=== PATIENT | female | born 1955 | race Caucasian/White ===

== ENCOUNTER 2024-03-14 12:57 | Outpatient (CLI) | payer MEDICARE, SELFPAY ==
--- NOTE | 2024-03-14 11:00 | DI.RAD_ITS ---
Exam(s) XR CHEST 2V PA LATERAL EXAM: XR CHEST 2V PA LATERAL CLINICAL HISTORY: Cough, R05.9, eval pna. TECHNIQUE: 2D digital imaging was performed. COMPARISON: No exams were available for comparison FINDINGS: 2 views: Heart size is normal. The mediastinum is not widened. Lungs are clear. No infiltrates nor pleural effusions. IMPRESSION: No acute pulmonary findings. DATA REPOSITORY: RADIATION DOSE DELIVERED:
--- OUTSIDE RECORDS SUMMARY | 2024-03-14 13:01 | XMS_ITS | Encounter Summary ---
Author Organization [facility] ivision Address [address] [place] [address] Care Team Providers Care [employer] Converter Name Role Phone Simone Ryan DO Primary Care Provider + [phone] Reason for Visit * Reason Comments low stats states sats at home. no complaints now, no new sxs. Encounter Details Date Type Department Care Team (Late st Contact Info) Description 11/03/2020 18:32 EDT - 11/03/2020 22:51 EDT Emergency [facility] [address] [place] [address] Francisca Pryor MD COVID-19 (Primary Dx); Dyspnea, unspecified type Discharge Disposition: Home or Self Social History Tobacco Use Types Packs/Day Years Used Date Smoking Tobacco: Passive Smo ke Exposure - Never Smoker Smokeless Tobacco: Never Alcohol Use Standard Drinks/Week Comments Never 0 (1 standard drink = 0.6 oz pur e alcohol) Comments Unknown Sex and Gender Information Value Date Recorded Sex Assigned at Not on file Legal Sex Female 18:10 EDT Gender Identity Not on file Sexual Orientation Not on file documented as of this encounter Last Filed Vital Signs Vital Sign Reading Time Taken Comments Blood Pressure 119/65 11/03/2020 2251 EDT Pulse 89 11/03/2020 225 EDT Temperature 36.8 ??C (98.2 ??F) 11/03/2020 1835 EDT Respiratory Rate 18 11/03/2020 225 EDT Oxygen Saturation 95% 11/03/2020 225 EDT Inhaled Oxygen Concentration - - Weight 79.4 kg (175 lb) 11/03/2020 183 EDT Height 172.7 cm (5' 8) 11/03/2020 1835 EDT Body Mass Index 26.61 11/03/2020 1835 EDT documented in this encounter Discharge Instructions * Discharge Instructions* Francisca Pryor - 11/03/2020 21:37 EDT Possible COVID-19 Home Care Instructions YOU may have infectious illness. As general precautions we recommend you isolated in your home and avoid interactions with other individuals or large groups as much as possible. You need to remain isolated for MINIMUM of 10 days since onset of symptoms AND MINIMUM of 24 hours after symptoms (fever,cough, etc.) have completely resolved. Return to emergency department or call 911 if you feel your symptoms are worsening. Most patients with COVID-19 will recover without any difficulties, however, in patients that worsenthis primarily occurs on days 6-10 from first onset of symptoms. Please be particularly mindful during this time period. VIDEO COVID-19 - Stable Patient Discharge Instructions [email or web address] These instructions are for patients with suspected COVID-19 who do not require hospitalization based on the Centers for Disease Control's (CDC) Guidelines and who may continue care at home. Coronavirus is a general category of virus that cause respiratory illnesses. The new coronavirus iscalled COVID-19. The virus is spread through: Respiratory droplets when someone sneezes or coughs Iwpzas-qf-miomii infection can happen in close contact with someone who is infected (within 6 feet). The virus may be caught if someone touches a surface or object with infected respiratory droplets on it. People are most contagious (at highest risk of spreading the virus to others) when they have symptoms. Some people may also be contagious before they get symptoms. Symptoms of COVID-19 may happen within 2-14 days following exposure and can be: Fever Cough Shortness of breath Rest, drink plenty of fluids, and monitor your symptoms at home. Notify your healthcare provider ifyour symptoms worsen. Return to your healthcare provider or go to the nearest Emergency Department right away if you havedifficulty breathing, chest pain, or a fever with confusion. Home isolation may be as long as 14 days. Consult with your healthcare provider or local health department once you no longer have symptoms. Steps to Prevent the Spread of Infection to People in Your Home and Community Stay home except to get medical care Wear a facemask when you are in close contact with other people and when going to a medical appointment or the hospital. Notify your healthcare provider before your appointment that you are suspectedof having COVID-19. Separate yourself from other people and animals in your home- as much as possible, you should stay in a specific room and away from other people in your home. Also, you should use a separate bathroom, if available. Cover your coughs and sneezes and then immediately wash your hands WASH YOUR HANDS often with soap and water for at least 20 seconds. If soap and water are not available, clean your hands with an alcohol-based hand hog operator that contains at least 60% alcohol, covering all surfaces of your hands and rubbing them together until they feel dry. Avoid touching your eyes, nose, and mouth with unwashed hands Do not share personal items with others, such as drinking glasses, cups, eating utensils, or towels. After using these items, they should be washed thoroughly with soap and water. Clean hard surfaces daily with antibacterial/anti-germicidal solutions such as Lysol or Clorox. Seethe CDC's Environmental Cleaning and Disinfection Recommendations for additional guidance. documented in this encounter Medications at Time of Discharge CHOLESTEROL ORAL Take by mouth levothyroxine sodium (SYNTHROID ORAL) Take by mouth azithromycin (ZITHROMAX) 250 MG tablet Take 2 tablets on first day, then 1 per day until finished. 6 tablet 11/03/2020 guaiFENesin (MUCINEX) 600 mg 12 hr tablet Take 2 tablets (1,200 mg total) by mouth 2 (two) times daily 30 tablet 11/03/2020 ibuprofen (MOTRIN) 600 MG tablet Take 1 tablet (600 mg total) by mouth Every 6 (six) hours as needed for Pain for up to 10 days 30 tablet 11/03/2020 11/13/2020 documented as of this encounter ED Notes * Francisca Pryor - 11/03/2020 2100 EDT History Chief Complaint Patient presents with ??? low stats states sats at home. no complaints now, no new sxs. HPI Patient is a 65-year-old female with history of hypothyroidism presenting with complaints of low oxygen saturations at home and shortness of breath. She reports that she is currently on day 8 of symptoms of COVID-19. Her positive test was on 10/28 at an outpatient pharmacy. She did receive the monoclonal antibody infusion yesterday, and reports that this did improve her fever. She is currently having worsening shortness of breath. She denies any cough, vomiting, diarrhea. She endorses anorexia, decreased p.o. intake, loss of taste and smell. She was monitoring her oxygen saturations at home with a pulse oximeter, and cell that went down to 89% with exertion, prompting her to seek medical eval uation. She is unvaccinated. Past Medical History: ??? High cholesterol ??? Thyroid disease History reviewed. No pertinent surgical history. No family history on file. Social History Socioeconomic History ??? Marital status: Spouse name: Not on file ??? Number of children: Not on file ??? Years of education: Not on file ??? Highest education level: Not on file Tobacco Use ??? Smoking status: Passive Smoke Exposure - Never Smoker ??? Smokeless tobacco: Never Used Substance and Sexual Activity ??? Alcohol use: Never ??? Drug use: Never Additional Smoking E-Cigarettes/Vaping Use E-Cigarette/Vaping Substances Review of Systems Constitutional: Negative for activity change, chills and fever. HENT: Negative for congestion, rhinorrhea and sore throat. Eyes: Negative for visual disturbance. Respiratory: Positive for shortness of breath. Negative for cough. Cardiovascular: Negative for chest pain and palpitations. Gastrointestinal: Negative for abdominal pain, diarrhea, nausea and vomiting. Genitourinary: Negative for dysuria and flank pain. Musculoskeletal: Negative for back pain and neck pain. Skin: Negative for wound. Neurological: Negative for weakness, numbness and headaches. Physical Exam ED Triage Vitals BP 11/03/20 1835 125/82 Heart Rate 11/03/20 1812 74 Resp 11/03/20 1835 16 Temp 11/03/20 183 36.8 ??C (98.2 ??F) SpO2 11/03/20 1812 94 % O2 Device 11/03/20 183 RA O2 Flow Rate (L/min) -- Physical Exam Vitals and nursing note reviewed. Constitutional: General: She is not in acute distress. HENT: Head: Normocephalic. Nose: No congestion. Eyes: Extraocular Movements: Extraocular movements intact. Pupils: Pupils are equal, round, and reactive to light. Cardiovascular: Rate and Rhythm: Normal rate. Pulses: Normal pulses. Heart sounds: No murmur heard. No friction rub. No gallop. Pulmonary: Effort: Pulmonary effort is normal. No respiratory distress. Breath sounds: No wheezing, rhonchi or rales. Abdominal: General: Abdomen is flat. There is no distension. Tenderness: There is no abdominal tenderness. There is no guarding. Musculoskeletal: General: No swelling. Normal range of motion. Cervical back: Normal range of motion and neck supple. Skin: General: Skin is warm. Capillary Refill: Capillary refill takes less than 2 seconds. Neurological: General: No focal deficit present. Mental Status: She is alert. Cranial Nerves: No cranial nerve deficit. Motor: No weakness. ED Course Procedure(s): Procedures EKG: Results for orders placed or performed during the hospital encounter of 11/03/20 ECG 12 lead Result Value Ref Range Ventricular Rate 63 BPM Atrial Rate 63 BPM TN Interval 144 ms QRS Duration 74 ms QT Interval 406 ms QTC Calculation 415 ms P [place] 38 degrees R [place] -22 degrees T Wave [place] 8 degrees Impression Normal sinus rhythm Moderate voltage criteria for LVH, may be normal variant Borderline ECG INT TIME: 2045 Confirmed by Francisca Pryor ([id number]), market editor SHERRY FAIRCHILD ([id number]) on 11/03/2020 11:05:50 PM EKG Procedure Information Interpreted by: ED Physician Reason for EKG: Shortness of Breath Quick EKG Clinical Impression: Abnormal EKG Compared with Previous EKG?: No Previous EKG Available Rate: normal BPM: 63 Rhythm: sinus rhythm QRS [place]: normal Interval: Normal ST Segments ST Segments: Nonspecific changes Laboratory Data: Results for orders placed or performed during the hospital encounter of 11/03/20 CBC w/auto diff Collection Time: 11/03/20 20:47 Result Value Ref Range WBC 4.2 (L) 4.5 - 11.0 K/uL RBC 4.98 3.80 - 5.20 M/uL Hemoglobin 14.6 11.7 - 16.1 g/dL Hematocrit 44.3 35.0 - 47.0 % MCV 89.0 81.0 - 102.0 fL MCH 29.3 25.0 - 35.0 pg MCHC 33.0 30.0 - 36.0 g/dL RDW 13.3 11.5 - 14.6 % MPV 10.3 No Established Reference Range fL Neutrophils % 58.7 40.0 - 70.0 % Lymphocytes % 32.4 15.0 - 45.0 % Monocytes % 8.0 1.0 - 8.0 % Eosinophils % 0.2 0.0 - 6.0 % BASO % 0.7 0.0 - 2.0 % MONO # 0.3 No Established Reference Range K/uL EOS # 0.0 No Established Reference Range K/uL BASO # 0.0 No Established Reference Range K/uL Platelets 183 150 - 450 K/uL nRBC 0 0 - 0 /100WBC LYMPH # 1.4 No Established Reference Range K/uL ABS NEUT # 2.48 No Established Reference Range K/uL Hepatitis C antibody Collection Time: 11/03/20 20:47 Result Value Ref Range Hepatitis C Antibodies Nonreactive Nonreactive Comprehensive metabolic panel Collection Time: 11/03/20 20:47 Result Value Ref Range Glucose 86.08 74 - 106 mg/dL Sodium 137.34 137 - 145 mMOL/L Potassium 3.7 3.5 - 5.1 mMOL/L Chloride 104.10 98 - 107 mMOL/L CO2 21 21 - 31 mMOL/L Anion Gap 16 10 - 20 BUN 20 (H) 7 - 18 mg/dL Creatinine 0.87 0.52 - 1.25 mg/dL EGFR 64.9 >60.0 mL/min/1.73*2 Calcium 8.8 8.5 - 10.5 mg/dL Protein 7.5 6.0 - 8.4 g/dL Albumin 4.0 3.0 - 5.0 g/dL A/G Ratio 1.1 >=1.1 Globulin 3.5 1.5 - 3.8 g/dL Total Bilirubin 0.4 0.2 - 1.3 mg/dL AST 95 (H) 5 - 49 U/L Alkaline Phosphatase 115.97 38 - 126 U/L ALT 64 (H) 3 - 35 U/L Troponin I Collection Time: 11/03/20 20:47 Result Value Ref Range Troponin I <0.020 <0.034 ng/mL Imaging: Results for orders placed or performed during the hospital encounter of 11/03/20 X-ray chest AP only Narrative [id number] XR CHEST SINGLE FRONTAL VIEW HISTORY: pain COMPARISON: None. FINDINGS: Lungs/Pleura: Faint bibasilar reticular opacities. No pleural effusion. Heart and Mediastinum: Normal. Bones/Soft Tissues: Normal. Impression Findings as above which may reflect atypical/viral pneumonia. Interpreted By: Vickey Trinidad MD 11/03/2020 8:27 PM Electronically signed by: Vickey Trinidad MD 11/03/2020 8:28 PM Most Recent Vitals: BP: 119/65 (11/03/202250) Heart Rate: 89 (11/03/202250) Resp: 18 (11/03/202250) Temp: 36.8 ??C (98.2 ??F) (11/03/201834) SpO2: 95 % (11/03/202250) O2 Device: Room air (11/03/202250) Medical Decision Making Patient is a 65-year-old female with recently diagnosed COVID-19 presenting with reports of low oxygen saturations at home, shortness of breath, and anorexia. Patient is well-appearing on arrival, noincreased work of breathing, saturating 94% on room air. She has received monoclonal antibody infusion yesterday. Workup significant for chest radiograph consistent with COVID-19 pneumonia. I do not t hink that her symptoms are concerning for acute pulmonary embolism, myocardial ischemia. She is stable for continued outpatient treatment at this time. We discussed return precautions. The patient was evaluated in the emergency department today for the symptoms described in the history of present illness. They were evaluated in the context of the global COVID-19 pandemic, which necessitated consideration that the patient might be at risk for infection with the SARS-CoV-2 virus that causes COVID-19. Institutional protocols and algorithm that pertain to the evaluation of patient is at risk for COVID-19 are in a state of rapid change based on information release by regulatory including the CDC and Federal and State organizations. These policies and algorithms were followed during the patient's care in the ED. ED CONSULT None ED REEVALUATION None Clinical Impression: Diagnoses Diagnosis Comment Added By Time Added COVID-19 Francisca Pryor MD 11/03/2020 21:36 Dyspnea, unspecified type Francisca Pryor MD 11/03/2020 21:36 Disposition: Discharge Good Francisca Pryor MD 11/04/20 0351 documented in this encounter Plan of Treatment Not on file documented as of this encounter Procedures Procedure Name Priority Date/Time Associated Diagnosis Comments HEPATITIS C ANTIBODY STAT 11/03/2020 20:47 EDT TROPONIN I STAT 11/03/2020 20:47 EDT CBC WITH AUTO DIFFERENTIAL STAT 11/03/2020 20:47 EDT COMPREHENSIVE METABOLIC PANEL STAT 11/03/2020 20:47 EDT ECG 12-LEAD STAT 11/03/2020 20:44 EDT XR CHEST AP ONLY STAT 11/03/2020 20:1 1 EDT documented in this encounter Results * Troponin I (11/03/2020 20:47 EDT) Troponin I <0.020 <0.034 ng/mL LAB CHEMISTRY METHOD 11/03/2020 21:24 EDT [facility] Blood BLOOD SPECIMEN / Unknown Venipuncture / Unknown 11/03/2020 20:47 EDT 11/03/2020 20:53 EDT Narrative [facility] - 11/03/2020 21:24 EDT The decision to rule out AMI should not be based on data from a single blood collection. This assay was done using the [employer] Troponin I Method. This method is specific to myocardium and does not cross react with the skeletal muscle Troponin I Isotypes. Results from other methods should not be used interchangeably. us Francisca Pryor MD LAB BLOOD ORDERABLES Final Res ult [facility] [address] * (ABNORMAL) Comprehensive metabolic panel (11/03/2020 20:47 [facility]) Glucose 86.08 74 - 106 mg/dL LAB CHEMISTRY METHOD 11/03/2020 21:11 [facility] Sodium 137.34 137 - 145 mMOL/L LAB CHEMISTRY METHOD 11/03/2020 21:11 [facility] Potassium 3.7 3.5 - 5.1 mMOL/L LAB CHEMISTRY METHOD 11/03/2020 21:11 [facility] Chloride 104.10 98 - 107 mMOL/L LAB CHEMISTRY METHOD 11/03/2020 21:11 [facility] CO2 21 21 - 31 mMOL/L LAB CHEMISTRY METHOD 11/03/2020 21:11 [facility] Anion Gap 16 10 - 20 LAB CHEMISTRY METHOD 11/03/2020 21:11 [facility] BUN 20(H) 7 - 18 mg/dL LAB CHEMISTRY METHOD 11/03/2020 21:11 [facility] Creatinine 0.87 0.52 - 1.25 mg/dL LAB CHEMISTRY METHOD 11/03/2020 21:11 [facility] EGFR 64.9 >60.0 mL/min/1. 73*2 LAB CHEMISTRY METHOD 11/03/2020 21:11 [facility] Calcium 8.8 8.5 - 10.5 mg/dL LAB CHEMISTRY METHOD 11/03/2020 21:11 [facility] Protein 7.5 6.0 - 8.4 g/dL LAB CHEMISTRY METHOD 11/03/2020 21:11 [facility] Albumin 4.0 3.0 - 5.0 g/dL LAB CHEMISTRY METHOD 11/03/2020 21:11 [facility] A/G Ratio 1.1 >=1.1 LAB CHEMISTRY METHOD 11/03/2020 21:11 [facility] Globulin 3.5 1.5 - 3.8 g/dL LAB CHEMISTRY METHOD 11/03/2020 21:11 [facility] Total Bilirubin 0.4 0.2 - 1.3 mg/dL LAB CHEMISTRY METHOD 11/03/2020 21:11 [facility] AST 95(H) 5 - 49 U/L LAB CHEMISTRY METHOD 11/03/2020 21:11 [facility] Alkaline Phosphatase 115.97 38 - 126 U/L LAB CHEMISTRY METHOD 11/03/2020 21:11 T [facility] ALT 64(H) 3 - 35 U/L LAB CHEMISTRY METHOD 11/03/2020 21:11 EDT [facility] Blood BLOOD SPECIMEN / Unknown Venipuncture / Unknown 11/03/2020 20:47 EDT 11/03/2020 20:53 EDT Francisca Pryor MD LAB BLOOD ORDERABLES Final Res ult Performing Organization Address [facility] de Phone Number [facility] [address] * Hepatitis C antibody (11/03/2020 20:47 EDT) Pathologist [facility] Hepatitis C Antibodies Nonreactive Nonreactive LAB CHEMISTRY METHOD 11/03/2020 22:04 T [facility] Blood BLOOD SPECIMEN / Unknown Venipuncture / Unknown 11/03/2020 20:47 EDT 11/03/2020 20:54 EDT Narrative [facility] - 11/03/2020 22:04 EDT Hepatitis C Ab Text - A reactive Hepatitis C Antibody screen indicates acute or chronic hepatitis or prior exposure to Hepatitis-C virus (does not imply immunity or infectious state). Reactive and equivocal results will be referred to the reference laboratory for RIBA or Hepatitis C RNA testing. The Hepatitis-C Antibody screen was done using the [facility]. Francisca Pryor MD LAB BLOOD ORDERABLES Final Res ult Performing Organization Address [facility] de Phone Number [address] * (ABNORMAL) CBC w/auto diff (11/03/2020 20:47 EDT) WBC 4.2(L) 4.5 - 11.0 K/uL LAB HEMATOLOGY METHOD 11/03/2020 21:05 [facility] RBC 4.98 3.80 - 5.20 M/uL LAB HEMATOLOGY METHOD 11/03/2020 21:05 [facility] Hemoglobin 14.6 11.7 - 16.1 g/dL LAB HEMATOLOGY METHOD 11/03/2020 21:05 [facility] Hematocrit 44.3 35.0 - 47.0 % LAB HEMATOLOGY METHOD 11/03/2020 21:05 [facility] MCV 89.0 81.0 - 102.0 fL LAB HEMATOLOGY METHOD 11/03/2020 21:05 [facility] MCH 29.3 25.0 - 35.0 pg LAB HEMATOLOGY METHOD 11/03/2020 21:05 [facility] MCHC 33.0 30.0 - 36.0 g/dL LAB HEMATOLOGY METHOD 11/03/2020 21:05 [facility] RDW 13.3 11.5 - 14.6 % LAB HEMATOLOGY METHOD 11/03/2020 21:05 [facility] MPV 10.3 No Established Reference Range fL LAB HEMATOLOGY METHOD 11/03/2020 21:05 [facility] Neutrophils % 58.7 40.0 - 70.0 % LAB HEMATOLOGY METHOD 11/03/2020 21:05 [facility] Lymphocytes % 32.4 15.0 - 45.0 % LAB HEMATOLOGY METHOD 11/03/2020 21:05 [facility] Monocytes % 8.0 1.0 - 8.0 % LAB HEMATOLOGY METHOD 11/03/2020 21:05 [facility] Eosinophils % 0.2 0.0 - 6.0 % LAB HEMATOLOGY METHOD 11/03/2020 21:05 [facility] BASO % 0.7 0.0 - 2.0 % LAB HEMATOLOGY METHOD 11/03/2020 21:05 [facility] MONO # 0.3 No Established Reference Range K/uL LAB HEMATOLOGY METHOD 11/03/2020 21:05 [facility] EOS # 0.0 No Established Reference Range K/uL LAB HEMATOLOGY METHOD 11/03/2020 21:05 [facility] BASO # 0.0 No Established Reference Range K/uL LAB HEMATOLOGY METHOD 11/03/2020 21:05 [facility] Platelets 183 150 - 450 K/uL LAB HEMATOLOGY METHOD 11/03/2020 21:05 [facility] nRBC 0 0 - 0 /100WBC LAB HEMATOLOGY METHOD 11/03/2020 21:05 [facility] LYMPH # 1.4 No Established Reference Range K/uL LAB HEMATOLOGY METHOD 11/03/2020 21:05 EDT [facility] ABS NEUT # 2.48 No Established Reference Range K/uL LAB HEMATOLOGY METHOD 11/03/2020 21:05 EDT [facility] Blood BLOOD SPECIMEN / Unknown Venipuncture / Unknown 11/03/2020 20:47 EDT 11/03/2020 20:53 EDT us Francisca Pryor MD LAB BLOOD ORDERABLES Final Res ult Performing Organization Address [facility]/ZIP Co de Phone Number [facility] [address] * ECG 12 lead (11/03/2020 20:44 EDT) Ventricular Rate 63 BPM MUSE Atrial Rate 63 BPM MUSE TN Interval 144 ms MUSE QRS Duration 74 ms MUSE QT Interval 406 ms MUSE QTC Calculation 415 ms MUSE P [place] 38 degrees MUSE R [place] -22 degrees MUSE T Wave [place] 8 degrees MUSE 11/03/2020 20:4 4 EDT 11/03/2020 23:05 EDT Impressions MUSE - 11/03/2020 23:05 EDT Normal sinus rhythm Moderate voltage criteria for LVH, may be normal variant Borderline ECG INT TIME: 2045 Confirmed by Francisca Pryor ([id number]), market editor SHERRY FAIRCHILD ([id number]) on 11/03/2020 11:05:50 PM Narrative Procedure Note Francisca Pryor MD - 11/03/2020 IMPRESSION: Normal sinus rhythm Moderate voltage criteria for LVH, may be normal variant Borderline ECG INT TIME: 2045 Confirmed by Francisca Pryor ([id number]), market editor SHERRY FAIRCHILD ([id number]) on11/03/2020 11:05:50 PM us Francisca Pryor MD ECG ORDERABLES Final Result Performing Organization Address [facility]/ZIP Co de Phone Number MUSE * X-ray chest AP only (11/03/2020 20:11 EDT) Anatomical Region Laterality Modality Chest Digital Radiogra phy 11/03/2020 20:2 7 EDT Impressions 11/03/2020 20:28 EDT Findings as above which may reflect atypical/viral pneumonia. Interpreted By: Vickey Trinidad MD ?? 11/03/2020 8:27 PM ? Electronically signed by: Vickey Trinidad MD ??11/03/2020 8:28 PM Narrative 11/03/2020 20:28 EDT [id number] XR CHEST SINGLE FRONTAL VIEW HISTORY: pain COMPARISON: None. FINDINGS: Lungs/Pleura: Faint bibasilar reticular opacities. No pleural effusion. Heart and Mediastinum: Normal. Bones/Soft Tissues: Normal. Procedure Note Vickey Trinidad MD - 11/03/2020 [id number] XR CHEST SINGLE FRONTAL VIEW HISTORY: pain COMPARISON: None. FINDINGS: Lungs/Pleura: Faint bibasilar reticular opacities. No pleural effusion. Heart and Mediastinum: Normal. Bones/Soft Tissues: Normal. IMPRESSION: Findings as above which may reflect atypical/viral pneumonia. Interpreted By: Vickey Trinidad MD 11/03/2020 8:27 PMElectronically signed by: Vickey Trinidad MD 18:28 PM us Jamaal Haji MD IMG DIAGNOSTIC IMAGING ORDERA BLES Final Result documented in this encounter Visit Diagnoses Diagnosis COVID-19- Primary Dyspnea, unspecified type documented in this encounter Care Teams [employer] Con[employer] Relationship Specialty [place] [id number] [place] [address] PCP - General Osteopathic Medicine 11/03/20 documented as of this encounter
--- OUTSIDE RECORDS SUMMARY | 2024-03-14 13:01 | XMS_ITS | Clinical Summary ---
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 6 tablet 11/03/2020 Active Social History Tobacco Use Types Packs/Day Years [...] on file Sexual Orientation Not on file Last Filed Vital Signs Vital Sign Reading Time Taken Comments Blood Pressure 119/65 11/03/2020 2251 EDT Pulse 89 11/03/20202250 EDT Temperature 36.8 ??C (98.2 ??F) 11/03/2020 1835 EDT Respiratory Rate 18 11/03/20202250 EDT Oxygen Saturation 95% 11/03/20202250 EDT Inhaled Oxygen Concentration - - Weight 79.4 kg (175 lb) 11/03/2020 183 EDT Height 172.7 cm (5' 8) 11/03/2020 1835 EDT Body Mass Index 26.61 11/03/2020 1835 EDT Plan of Treatment Health Maintenance Due Date Last Done Comments Breast Cancer Screening 1953 CT Colonography 1953 Colonoscopy 1953 Colorectal Cancer Screening 1955 FIT-DNA (Cologuard) 1953 FIT 1955 FOBT 1955 Medicare Initial Physical (IPPE)/Annual Wellness Visit (AWV) 1953 Osteoporosis Screening 1955 Sigmoidoscopy 1953 DTaP/Tdap/Td Vaccines (1 - Tdap) 1972 Pneumococcal Vaccine: 50+ Ye ars (1 of 1 - PCV) 2003 Zoster Vaccine (1 of 2) 2003 Screening for Diabetes 11/03/2021 11/03/2020 COVID-19 Vaccine ( - 2023-2 5 season) 2023 Influenza Vaccine (#1) 2023 RSV Vaccine: 60+ Years or Pr egnant (1 - 1-dose 75+ series) 2028 Hepatitis C Screening Completed 11/03/2020 HIB Vaccines Aged Out No longer eligi ble based on patient's age to complete this topic HPV Vaccines Aged Out No longer eligi ble based on patient's age to complete this topic Hepatitis A Vaccines Aged Out No long er eligible based on patient's age to complete this topic Hepatitis B Vaccines Aged Out No long er eligible based on patient's age to complete this topic IPV Vaccines Aged Out No longer eligi ble based on patient's age to complete this topic Meningococcal Vaccine Aged Out No flaquito tonya eligible based on patient's age to complete this topic RSV Vaccine: < 20 Months Aged Out No longer eligible based on patient's age to complete this topic Rotavirus Vaccines Aged Out No longer eligible based on patient's age to complete this topic Procedures Procedure Name Priority Date/Time Associated Diagnosis Comments COMPREHENSIVE METABOLIC PANEL STAT 11/03/2020 20:47 EDT HEPATITIS C ANTIBODY STAT 11/03/2020 20:47 EDT from Last 3 Months or Most Recently Relevant to Health Maintenance Results * Hepatitis C antibody (11/03/2020 20:47 EDT) [facility] Hepatitis C Antibodies Nonreactive Nonreactive LAB CHEMISTRY METHOD 11/03/2020 22:04 [facility] Blood BLOOD SPECIMEN / Unknown Venipuncture / Unknown 11/03/2020 20:47 EDT 11/03/2020 20:54 [facility] LABORATORY - 11/03/2020 22:04 EDT Hepatitis C Ab Text - A reactive Hepatitis C Antibody screen indicates acute or chronic hepatitis or prior exposure to Hepatitis-C virus (does not imply immunity or infectious state). Reactive and equivocal results will be referred to the reference laboratory for RIBA or Hepatitis C RNA testing. The Hepatitis-C Antibody screen was done using the [employer] Clinical Diagnostic System. us Francisca Pryor MD LAB BLOOD ORDERABLES Final Res ult [facility] [address] [place] [address], [facility] * (ABNORMAL) Comprehensive metabolic panel (11/03/2020 20:47 EDT) [facility] Glucose 86.08 74 - 106 mg/dL LAB CHEMISTRY METHOD 11/03/2020 21:11 [facility] Sodium 137.34 137 - 145 mMOL/L LAB CHEMISTRY METHOD 11/03/2020 21:11 [facility] Potassium 3.7 3.5 - 5.1 mMOL/L LAB CHEMISTRY METHOD 11/03/2020 21:11 [facility] Chloride 104.10 98 - 107 mMOL/L LAB CHEMISTRY METHOD 11/03/2020 21:11 [facility] CO2 21 21 - 31 mMOL/L LAB CHEMISTRY METHOD 11/03/2020 21:11 [facility] Anion Gap 16 10 - 20 LAB CHEMISTRY METHOD 11/03/2020 21:11 [facility] BUN 20(H) 7 - 18 mg/dL LAB CHEMISTRY METHOD 11/03/2020 21:11 [facility] Creatinine 0.87 0.52 - 1.25 mg/dL LAB CHEMISTRY METHOD 11/03/2020 21:11 [facility] EGFR 64.9 >60.0 mL/min/1. 73*2 LAB CHEMISTRY METHOD 11/03/2020 21:11 [facility] Calcium 8.8 8.5 - 10.5 mg/dL LAB CHEMISTRY METHOD 11/03/2020 21:11 [facility] Protein 7.5 6.0 - 8.4 g/dL LAB CHEMISTRY METHOD 11/03/2020 21:11 [facility] Albumin 4.0 3.0 - 5.0 g/dL LAB CHEMISTRY METHOD 11/03/2020 21:11 [facility] A/G Ratio 1.1 >=1.1 LAB CHEMISTRY METHOD 11/03/2020 21:11 [facility] Globulin 3.5 1.5 - 3.8 g/dL LAB CHEMISTRY METHOD 11/03/2020 21:11 [facility] Total Bilirubin 0.4 0.2 - 1.3 mg/dL LAB CHEMISTRY METHOD 11/03/2020 21:11 [facility] AST 95(H) 5 - 49 U/L LAB CHEMISTRY METHOD 11/03/2020 21:11 [facility] Alkaline Phosphatase 115.97 38 - 126 U/L LAB CHEMISTRY METHOD 11/03/2020 21:11 [facility] ALT 64(H) 3 - 35 U/L LAB CHEMISTRY METHOD 11/03/2020 21:11 [facility] Blood BLOOD SPECIMEN / Unknown Venipuncture / Unknown 11/03/2020 20:47 EDT 11/03/2020 20:53 EDT us Francisca Pryor MD LAB BLOOD ORDERABLES Final Res ult [facility] [address] [id number] from Last 3 Months or Most Recently Relevant to Health Maintenance Insurance MR [employer] HMO/PPO/GOLD/CHOICE Care Teams Sales Attendant [employer] Relationship Specialty [place] [id number] [id number] PCP - General Osteopathic Medicine 11/03/20
== END 2024-03-14 13:17 ==
LOC: DI 12:59
PROVIDERS: Visit Provider Nurse Practitioner Family
DX: R05.9 Cough, unspecified (principal)
CPT/HCPCS: 71046